=== PATIENT | female | born 1995 | race Caucasian/White ===

== ENCOUNTER 2018-02-15 10:21 | Outpatient (CLI) | payer OTHER ==
[2018-02-15 11:21] LABS: ALBUMIN 3.9 g/dL (3.4-5.0); ANION GAP 12.2 (8-16); CARBON DIOXIDE 25.8 mmol/L (21-32); CHOL/HDL RATIO 4.8 (1-4.5); CREATININE 0.7 mg/dL (0.6-1.3); TOTAL BILIRUBIN 0.3 mg/dL (0.0-1.0)
== END 2018-02-15 20:41 | disposition home or self-care (01) ==
LOC: MLB 10:21
DX: Z01.419 Encounter for gynecological examination (general) (routine) without abnormal findings (principal); E66.9 Obesity, unspecified
CPT/HCPCS: 36415; 80053; 83036